=== PATIENT | female | born 1955 | race Caucasian/White ===

== ENCOUNTER → 2017-02-02 | Day surgery (SDC) | payer OTHER ==
[~2017-02-02] VITALS: Ht 170.2 cm; Wt 76.8 kg
[2017-02-02 07:24] LABS: HCT 39.6 % (37.0-47.0); MCHC 32.8 g/dL (32.0-36.0); MCV 88.4 fL (78.0-100.0); MPV 9.8 fL (6.0-9.5); RBC 4.48 M/uL (4.20-5.40); RDW 15.5 % (11.5-14.0); WBC 5.4 K/uL (4.0-10.5)
[2017-02-02 07:37] LABS: ALBUMIN 3.8 g/dL (3.4-4.8); BILIRUBIN - TOTAL 0.3 mg/dL (0.1-1.0); CREATININE 0.9 mg/dL (0.5-1.0); GLOBULIN (CALCULATION) 2.5 g/dL (2.2-4.2); POTASSIUM 4.1 mmol/L (3.5-5.1); TOTAL PROTEIN 6.3 g/dL (6.4-8.3)
== END | disposition home or self-care (01) ==
LOC: FAS 07:25
PROVIDERS: Surgery
DX: Z12.11 Encounter for screening for malignant neoplasm of colon (principal); K29.70 Gastritis, unspecified, without bleeding; F32.9 Major depressive disorder, single episode, unspecified; F41.9 Anxiety disorder, unspecified; E03.9 Hypothyroidism, unspecified; J45.909 Unspecified asthma, uncomplicated; M19.90 Unspecified osteoarthritis, unspecified site; M79.7 Fibromyalgia; E78.5 Hyperlipidemia, unspecified; B35.1 Tinea unguium; Z88.5 Allergy status to narcotic agent; Z90.49 Acquired absence of other specified parts of digestive tract; Z90.710 Acquired absence of both cervix and uterus; Z90.721 Acquired absence of ovaries, unilateral; Z82.61 Family history of arthritis; Z83.3 Family history of diabetes mellitus; Z81.1 Family history of alcohol abuse and dependence; Z83.42 Family history of familial hypercholesterolemia; Z79.899 Other long term (current) drug therapy; Z98.890 Other specified postprocedural states
CPT/HCPCS: 36415; 80053; J2704

== ENCOUNTER 2020-10-22 11:29 | Emergency (ER) | payer MEDICARE, OTHER ==
[~2020-10-22 11:29] MED LIST: AMBIEN10 MG PO; AMOXICILLIN500 MG PO; ATIVAN0.5 MG PO; AUGMENTIN 875-1 EACH PO; AZITHROMYCIN250 MG PO; BACTRIM DS TAB1 EACH PO; BENTYL10 MG PO; CARAFATE1 GM PO; CIPRO500 MG PO; CYANOCOBAL1000 MCG/1 IM; DIFLUCAN150 MG PO; ESTRACE1 MG PO; ETODOLAC500 MG PO; FLAGYL500 MG PO; FLEXERIL5 MG PO; LEVAQUIN500 MG PO; MEDROL 4MG DOSEP4 MG PO; METRONIDAZOLE500 MG PO; NIFEREX150 MG PO; PERCOCET 5-3251 EACH PO; PHENERGAN25 M1 PO; PRILOSEC20 MG PO; PROBIOTIC1 EAC1 PO; SYNTHROID75 MCG PO; TRAMADOL HCL50 MG PO; TUMERIC CURCUMIN PO; VITAMIN B-12500 MCG PO; XARELTO10 MG PO; ZOFRAN ODT4 MG PO; ZOFRAN4 MG PO; [UNRECOGNIZED DRUG - OTHER] SL
[2020-10-22 13:11] LABS: BASOPHIL 0.5 % (0-2); HCT 44.4 % (37.0-47.0); HGB 13.8 g/dl (12.5-16.0); LYMPHOCYTE 18.8 % (15-48); MCH 30.3 pg (25.0-31.0); MCHC 31.1 g/dL (32.0-36.0); MCV 97.4 fL (78.0-100.0); MPV 10.1 fL (6.0-9.5); NEUTROPHIL 69.6 % (41-80); NRBC 0; PLT 379 K/uL (150-400); RBC 4.56 M/uL (4.20-5.40); RDW 13.2 % (11.5-14.0); WBC 9.6 K/uL (4.0-10.5)
[2020-10-22 13:23] LABS: ALBUMIN 2.8 g/dL (3.4-5.0); BILIRUBIN - TOTAL 0.3 mg/dL (0.2-1.0); BUN/CREAT RATIO (CALC) 28.9 RATIO; CREATININE 0.9 mg/dL (0.51-0.95); GLOBULIN (CALCULATION) 3.7 g/dL; POTASSIUM 5.1 mmol/L (3.5-5.1); TOTAL PROTEIN 6.5 g/dL (6.4-8.2)
[2020-10-22 14:28] LABS: BILIRUBIN NEGATIVE (NEGATIVE); BLOOD NEGATIVE Ery/uL (NEGATIVE); CLARITY CLOUDY (CLEAR); COLOR YELLOW (YELLOW); GLUCOSE (U) NORMAL (NORMAL); LEUKOCYTES 2+ Leu/uL (NEGATIVE); NITRITE NEGATIVE (NEGATIVE); PROTEIN NEGATIVE (NEGATIVE); UROBILINOGEN 0.2 mg/dL (0.2-1.0)
[2020-10-22 14:37] LABS: BACTERIA 1+; URINARY RBC RARE; URINARY WBC 20-50
[2020-10-22 14:38] LABS: AMORPHOUS URATES CRYSTALS MODERATE
[2020-10-22] MEDS ORDERED: BACTRIM DS TAB1 EACH PO (17:06)
[2020-10-22] MEDS ORDERED: MEDROL 4MG DOSEP4 MG PO (17:06)
== END 2020-10-22 18:05 | disposition home or self-care (01) ==
LOC: FER 11:29
PROVIDERS: Emergency Medicine
DX: U07.1 COVID-19 (principal); J12.82 Pneumonia due to coronavirus disease 2019; N39.0 Urinary tract infection, site not specified; K21.9 Gastro-esophageal reflux disease without esophagitis; E78.5 Hyperlipidemia, unspecified; I10 Essential (primary) hypertension; F41.9 Anxiety disorder, unspecified; F32.9 Major depressive disorder, single episode, unspecified
CPT/HCPCS: 36415; 71045; 80053; 81001; 83605; 84484; 85025; 87088; 93005; J0696; J7050; M0239; U0002

== ENCOUNTER → 2021-01-08 | Day surgery (SDC) | payer MEDICARE, OTHER ==
[~2021-01-08] VITALS: Ht 170.2 cm; Wt 68.0 kg
[~2021-01-08] MED LIST changes: +KEFLEX250 MG PO
[2021-01-08 08:43] LABS: HCT 43.9 % (37.0-47.0); HGB 13.8 g/dl (12.5-16.0); MCH 30.7 pg (25.0-31.0); MCHC 31.4 g/dL (32.0-36.0); MCV 97.8 fL (78.0-100.0); MPV 10.2 fL (6.0-9.5); RBC 4.49 M/uL (4.20-5.40); RDW 15.1 % (11.5-14.0); WBC 8.5 K/uL (4.0-10.5)
[2021-01-08 09:37] LABS: ALBUMIN 3.4 g/dL (3.4-5.0); BILIRUBIN - TOTAL 0.2 mg/dL (0.2-1.0); BUN/CREAT RATIO (CALC) 41.9 RATIO; CREATININE 0.86 mg/dL (0.51-0.95); GLOBULIN (CALCULATION) 3.4 g/dL; POTASSIUM 3.9 mmol/L (3.5-5.1); TOTAL PROTEIN 6.8 g/dL (6.4-8.2)
== END | disposition home or self-care (01) ==
LOC: FAS 01-01 08:00
PROVIDERS: Surgery
DX: K57.30 Diverticulosis of large intestine without perforation or abscess without bleeding (principal); G89.18 Other acute postprocedural pain; R63.4 Abnormal weight loss; J43.9 Emphysema, unspecified; Z90.49 Acquired absence of other specified parts of digestive tract; K21.9 Gastro-esophageal reflux disease without esophagitis; E78.5 Hyperlipidemia, unspecified; I10 Essential (primary) hypertension; E03.9 Hypothyroidism, unspecified; M81.0 Age-related osteoporosis without current pathological fracture; F41.9 Anxiety disorder, unspecified; M19.90 Unspecified osteoarthritis, unspecified site; J45.909 Unspecified asthma, uncomplicated; F32.9 Major depressive disorder, single episode, unspecified; Z98.0 Intestinal bypass and anastomosis status; Z86.16 Personal history of COVID-19; Z98.1 Arthrodesis status; Z88.1 Allergy status to other antibiotic agents; Z88.5 Allergy status to narcotic agent; Z88.8 Allergy status to other drugs, medicaments and biological substances; Z79.891 Long term (current) use of opiate analgesic; Z79.899 Other long term (current) drug therapy
CPT/HCPCS: 36415; 80053; J1610; J2704; J7120

== ENCOUNTER 2021-02-15 22:34 | Emergency (ER) | payer MEDICARE, OTHER ==
[~2021-02-15 22:34] MED LIST changes: -KEFLEX250 MG PO
== END 2021-02-15 23:28 | disposition home or self-care (01) ==
LOC: FER 22:34
DX: S81.811A Laceration without foreign body, right lower leg, initial encounter (principal); Z88.8 Allergy status to other drugs, medicaments and biological substances; Z88.1 Allergy status to other antibiotic agents; W45.8XXA Other foreign body or object entering through skin, initial encounter; Y92.009 Unspecified place in unspecified non-institutional (private) residence as the place of occurrence of the external cause
CPT/HCPCS: 99282

== ENCOUNTER 2021-03-05 10:24 | Emergency (ER) | payer MEDICARE, OTHER ==
[2021-03-05 13:21] LABS: BASOPHIL 0.3 % (0-2); EOSINOPHIL 0.1 % (0-7); HCT 44.3 % (37.0-47.0); HGB 14.1 g/dl (12.5-16.0); LYMPHOCYTE 7.7 % (15-48); MCH 30.6 pg (25.0-31.0); MCHC 31.8 g/dL (32.0-36.0); MCV 96.1 fL (78.0-100.0); MONOCYTE 6.9 % (0-12); MPV 10.4 fL (6.0-9.5); NRBC 0; PLT 236 K/uL (150-400); RBC 4.61 M/uL (4.20-5.40); RDW 14.2 % (11.5-14.0); WBC 12.9 K/uL (4.0-10.5)
[2021-03-05 13:36] LABS: ALBUMIN 3.4 g/dL (3.4-5.0); BILIRUBIN - TOTAL 0.4 mg/dL (0.2-1.0); BUN/CREAT RATIO (CALC) 28.4 RATIO; CREATININE 0.74 mg/dL (0.51-0.95); GLOBULIN (CALCULATION) 3.3 g/dL; POTASSIUM 4.6 mmol/L (3.5-5.1); TOTAL PROTEIN 6.7 g/dL (6.4-8.2)
[2021-03-05] MEDS ORDERED: KEFLEX250 MG PO (17:02)
== END 2021-03-05 18:06 | disposition home or self-care (01) ==
LOC: FER 10:24
PROVIDERS: Internal Medicine
DX: S42.255A Nondisplaced fracture of greater tuberosity of left humerus, initial encounter for closed fracture (principal); S81.011A Laceration without foreign body, right knee, initial encounter; Z96.651 Presence of right artificial knee joint; Z96.642 Presence of left artificial hip joint; W01.0XXA Fall on same level from slipping, tripping and stumbling without subsequent striking against object, initial encounter; Y92.009 Unspecified place in unspecified non-institutional (private) residence as the place of occurrence of the external cause
CPT/HCPCS: 36415; 73030; 73564; 80053; 85025; J2270

== ENCOUNTER 2022-02-01 18:33 | Emergency (ER) | payer MEDICARE, OTHER ==
[~2022-02-01 18:33] MED LIST changes: +KEFLEX250 MG PO
[2022-02-01] MEDS ORDERED: CEPHALEXIN500 M1 PO ×2 (20:14→20:51)
== END 2022-02-01 20:02 | disposition home or self-care (01) ==
LOC: FER 18:33
DX: S61.412A Laceration without foreign body of left hand, initial encounter (principal); W27.8XXA Contact with other nonpowered hand tool, initial encounter; Y92.009 Unspecified place in unspecified non-institutional (private) residence as the place of occurrence of the external cause
CPT/HCPCS: 73130